=== PATIENT | female | born 1990 | race Caucasian/White ===

== ENCOUNTER 2021-09-17 09:56 | Emergency (ER) | payer MEDICARE, MEDICAID, SELFPAY ==
--- NOTE | ~2021-09-17 | US_ITS ---
EXAMINATION: US ABDOMEN LIMITED CLINICAL INFORMATION: Right upper quadrant pain. Hepatitis a COMPARISON: September 22, 2011 and August 02, 2011 TECHNIQUE: Real-time imaging of the right upper quadrant abdominal viscera. FINDINGS: PANCREAS: Normal. LIVER: Hepatomegaly is present with vertical span of 20 cm. There is diffusely increased echogenicity consistent with fatty infiltration or hepatocellular disease. The liver contour is normal. No focal hepatic lesion. There is no intrahepatic biliary duct dilatation seen. GALLBLADDER: Status post cholecystectomy. COMMON BILE DUCT: Normal in caliber measuring 0.5 cm in diameter. RIGHT KIDNEY: Normal. No hydronephrosis. No renal calculi or focal parenchymal lesions. The kidney measures 12.5 cm in maximum dimension. FREE FLUID: None. US/US abdomen limited IMPRESSION: Hepatomegaly with increased echogenicity consistent with fatty infiltration or hepatocellular disease of other etiology.
--- NOTE | ~2021-09-17 | XR_ITS ---
EXAMINATION: XR CHEST CLINICAL INFORMATION: Fever. COMPARISON: Chest radiographs 05/24/2012 TECHNIQUE: PA and lateral views of the chest are obtained. FINDINGS: There is airspace consolidation and atelectasis involving the left posterior basal lower lobe. The remainder the lungs are clear. No visible effusion. Heart is within limits of normal size. There is no hyperinflation. The vascularity is normal. Bony structures are unremarkable. XR/XR chest 2V IMPRESSION: Airspace opacity and subsegmental atelectasis basal left lower lobe suggesting pneumonia. No effusion.
[2021-09-17 11:14] VITALS: BP 134/74; PULSE 82; RESP 20; TEMP 36.5; O2SAT 94; BMI 52.7
[2021-09-17 11:19] VITALS: BP 170/92; PULSE 95; RESP 22; TEMP 36.2; O2SAT 96
--- NOTE | 2021-09-17 11:28 | ED_ITS ---
HPI - Abdominal Pain General Chief Complaint: Abdominal Pain Stated Complaint: HEP A, fever, abd pain, diarrhea Time Seen by Provider: 09/17/21 11:06 Source: patient Mode of arrival: ambulatory Limitations: no limitations History of Present Illness HPI narrative: 31-year-old female with a history of obesity, asthma, and recently diagnosed hepatitis a who presents to the ER with 3 weeks of ongoing abdominal pain, nausea, diarrhea, and nightly fevers. She was seen at [facility] on August 29, had a CT scan of her abdomen, blood work and was diagnosed with hepatitis A. They told her it most likely was from a bacteria that she got at work, she works at a convenience store. She then saw her primary care doctor on September 09, additional blood work and liver ultrasound was ordered which was not completed yet. She reports this last week she has had significant decreased p.o. intake, nausea, 4-5 episodes of nonbloody diarrhea per day, and nightly fevers as high as 104 degrees. She reports when her fever was 104 her eyes rolled back and her mom had to slap her to wake her up. She has been taking Motrin for abdominal pain and fevers with intermittent slight improvement. She has no cough or shortness of breath. She has no urinary symptoms but reports her urine is dark in color. MD elicited complaint: abdominal pain Pertinent past history: other (Recently diagnosed hepatitis A) Onset (ago): week(s) Pain Consistency: intermittent Location: epigastric, RUQ and L flank Severity: severe Pain scale (0-10): 10 Quality: burning Radiation: none Migration to: RUQ and L flank Exacerbating factors: eating and other (night) Relieving factors: nothing Associated symptoms: nausea, diarrhea, fever and chills Related Data Previous Rx's Medication Instructions Recorded levofloxacin 500 mg tablet 500 mg PO DAILY #7 tab 09/17/21 omeprazole 40 mg capsule,delayed 40 mg PO DAILY #14 cap 09/17/21 release ondansetron HCl 4 mg tablet 4 mg PO Q8H PRN #10 tab 09/17/21 (Zofran) Allergies Allergy/AdvReac Type Severity Reaction Status Date / Time penicillin V Allergy Unknown rash Unverified 01/28/15 00:00 Penicillins [PENICILLINS] Allergy Unknown HIVES Unverified 08/13/20 16:03 Review of Systems Review of Systems Constitutional: + Fever, No Chills ENT/Mouth: No sore throat, No Rhinorrhea, No Swallowing Difficulty Eyes: No Eye Pain, No Swelling, No Redness, No sceral icterus Cardiovascular: No Chest Pain, No SOB, No Orthopnea, No Edema Respiratory: No Cough, No Sputum, No Wheezing, No dyspnea Gastrointestinal: + Nausea, No Vomiting, + Diarrhea, + abdominal Pain Genitourinary: No Dysuria, No Urinary Frequency, No Hematuria Musculoskeletal: No joint pain, No Myalgias Skin: No Skin Lesions, No rash Neuro: + Weakness, No Numbness, + Dizziness, No Headache Psych: + Anxiety/Panic, + Depression Heme/Lymph: No Bruising, No Lymphadenopathy Endocrine: No Polyuria, No Polydipsia Physical Exam Vital Signs: Vital Signs: Last Vital Signs Temp 98.4 F 09/17/21 14:00 Pulse 86 09/17/21 14:00 Resp 16 09/17/21 15:36 BP 118/60 09/17/21 15:36 Pulse Ox 96 09/17/21 14:00 Body Mass Index 52.7 Appearance: Alert. Oriented X3. Tearful Eyes: Pupils equal, round and reactive to light. Sclera non-icteric ENT: Pharynx normal. Neck: Normal inspection. Neck supple. CVS: Normal heart rate and rhythm. Pulses normal. Respiratory: No respiratory distress. Breath sounds normal. Abdomen: Obese, Soft with moderate epigastic tenderness without rebound or guarding. decreased +BS x4 Skin: Skin warm and dry. Normal skin color. Normal skin turgor. No rashes. Extremities: No lower extremity edema. Neuro: Oriented X 3. No motor deficit. No sensory deficit. Course Course Course Narrative: 31-year-old female with recently diagnosed hepatitis A presenting with ongoing symptoms of nightly fevers, abdominal pain, nonbloody diarrhea, decreased p.o. intake and generalized fatigue and weakness. She is tearful on arrival and very anxious. She is frustrated being in and out of hospitals and doctors office with no improvement in the way she is feeling. Her vital signs are stable on arrival when she is afebrile. She is nontoxic linda earing she has no jaundice. Will plan to repeat her blood work, proceed with abdominal ultrasound, and get records from [facility]. She had a CT scan done there less than a month ago. Her abdominal exam is mostly benign with only some mild epigastric tenderness. Will treat with a GI cocktail as she has been taking Motrin consistently and there is concern for gastritis. Dispo pending results and improvement. Reevaluation(s) Reevaluation #1: Abdominal pain is significantly improved after GI cocktail. Abdominal ultrasound showing fatty liver. Her LFTs are mildly elevated with normal bilirubin and alk-phos. Her hepatitis panel is showing positive hepatitis C antibody, hepatitis-A is negative. She denies any history of IV drug use or blood transfusion in her lifetime. She is not sexually active at this time. She was counseled on need for follow-up with GI doctor and she agrees. Chest x-ray showing a left lower lobe pneumonia. Will treat with p.o. antibiotics. She is stable from respiratory perspective with no respiratory distress or hypoxia. She is requesting additional IV fluids. She is concerned about going home given the way she is feeling right now. Will give a p.o. trial and reassess Reevaluation #2: Patient is feeling much better. She tolerated p.o. well. Stable for discharge home on p.o. antibiotics, antacids, p.r.n. Zofran and plan for follow-up with GI as an outpatient. Patient agreeable with plan. Work note provided per request. MDM - Abdominal Pain Lab Data Result diagrams: 09/17/21 11:47 09/17/21 11:47 Labs: Lab Results 09/17/21 09/17/21 09/17/21 Range/Units 11:47 11:47 11:47 WBC 10.5 (4.8-10.8) X10*3/uL RBC 4.84 (4.20-5.50) X10*6/uL Hgb 13.6 (12.0-16.0) g/dl Hct 41.8 (37-47) % MCV 86.4 (80-98) fL MCH 28.1 (27.0-33.0) pg MCHC 32.5 (31.0-35.0) g/dl RDW 13.6 (11.0-16.0) % Plt Count 339 (160-400) X10*3/uL MPV 9.0 L (9.4-12.3) fL Immature Gran % (Auto) Cancelled Neut % (Auto) Cancelled Lymph % (Auto) Cancelled Christian % (Auto) Cancelled Eos % (Auto) Cancelled Baso % (Auto) Cancelled Lymph # (Auto) Cancelled Christian # (Auto) Cancelled Eos # (Auto) Cancelled Baso # (Auto) Cancelled Abs Immat Gran (auto) Cancelled Absolute Neuts (auto) Cancelled Absolute Nucleated RBC 0.000 (0.0-0.012) X10*3/uL Nucleated RBC % (auto) 0.0 (0.0-0.2) /100WBC Neutrophils % (Manual) 49 (45-73) % Band Neutrophils % 3 (3-5) % Lymphocytes % (Manual) 36 (20-40) % Atypical Lymphs % (Man) 2 (0-6) % Monocytes % (Manual) 10 (2-11) % Abs Neuts (Manual) 5.5 (2.2-7.9) X10*3/uL Lymphocytes # (Manual) 3.8 (0.6-4.8) X10*3/uL Atyp Lymphs # (Manual) 0.2 x10*3/uL Monocytes # (Manual) 1.1 (0.0-1.2) X10*3/uL Platelet Estimate NORMAL (NORMAL) Plt Morphology Comment NORMAL RBC Morphology NORMAL PT 11.8 (9.9-13.0) SEC INR 1.0 (0.9-1.1) APTT 35.3 (24.1-38.0) SEC Sodium 138 (135-145) mmol/L Potassium 4.6 (3.3-5.1) mmol/L Chloride 103 (96-108) mmol/L Carbon Dioxide 29 (22-29) mmol/L Anion Gap 11 L (12-20) BUN 8 L (9-16) mg/dL Creatinine 0.71 (0.5-1.4) mg/dL Estim Creat Clear Calc 179.3 Estimated GFR > 60 Random Glucose 88 (60-115) mg/dL Lactic Acid (0.5-2.0) mmol/L Calcium 8.7 (8.4-10.2) mg/dL Magnesium 2.2 (1.6-2.6) mg/dL Total Bilirubin 0.7 (0.0-1.0) mg/dL Direct Bilirubin 0.3 (0.0-0.5) mg/dL AST 32 H (5-31) U/L ALT 36 H (0-31) U/L Alkaline Phosphatase 113 (39-117) U/L Total Protein 7.3 (6.5-8.0) g/dL Albumin 3.3 L (3.5-5.0) g/dL Lipase 33 (8-78) U/L Urine Color Urine Appearance Urine pH (5.0-8.0) Ur Specific Elsie (1.005-1.025) Urine Protein (NEG-TRACE) MG/DL Urine Glucose (UA) (NEG) MG/DL Urine Ketones (NEG) MG/DL Urine Blood (NEG) Urine Nitrite (NEG) Ur Leukocyte Esterase (NEG) Ethyl Alcohol mg/dL COVID-19 (LAQUITA) (Negative) COVID-19 Clin Com Hepatitis A IgM Ab (Nonreactive) Hep Bs Antigen (Negative) Hep Bs Antibody (Nonreactive) Hep B Core Total Ab (Nonreactive) Hepatitis C Ab (EIA) (Nonreactive) 09/17/21 09/17/21 09/17/21 Range/Units 11:47 11:47 11:48 WBC (4.8-10.8) X10*3/uL RBC (4.20-5.50) X10*6/uL Hgb (12.0-16.0) g/dl Hct (37-47) % MCV (80-98) fL MCH (27.0-33.0) pg MCHC (31.0-35.0) g/dl RDW (11.0-16.0) % Plt Count (160-400) X10*3/uL MPV (9.4-12.3) fL Immature Gran % (Auto) Neut % (Auto) Lymph % (Auto) Christian % (Auto) Eos % (Auto) Baso % (Auto) Lymph # (Auto) Christian # (Auto) Eos # (Auto) Baso # (Auto) Abs Immat Gran (auto) Absolute Neuts (auto) Absolute Nucleated RBC (0.0-0.012) X10*3/uL Nucleated RBC % (auto) (0.0-0.2) /100WBC Neutrophils % (Manual) (45-73) % Band Neutrophils % (3-5) % Lymphocytes % (Manual) (20-40) % Atypical Lymphs % (Man) (0-6) % Monocytes % (Manual) (2-11) % Abs Neuts (Manual) (2.2-7.9) X10*3/uL Lymphocytes # (Manual) (0.6-4.8) X10*3/uL Atyp Lymphs # (Manual) x10*3/uL Monocytes # (Manual) (0.0-1.2) X10*3/uL Platelet Estimate (NORMAL) Plt Morphology Comment RBC Morphology PT (9.9-13.0) SEC INR (0.9-1.1) APTT (24.1-38.0) SEC Sodium (135-145) mmol/L Potassium (3.3-5.1) mmol/L Chloride (96-108) mmol/L Carbon Dioxide (22-29) mmol/L Anion Gap (12-20) BUN (9-16) mg/dL Creatinine (0.5-1.4) mg/dL Estim Creat Clear Calc Estimated GFR Random Glucose (60-115) mg/dL Lactic Acid 1.4 (0.5-2.0) mmol/L Calcium (8.4-10.2) mg/dL Magnesium (1.6-2.6) mg/dL Total Bilirubin (0.0-1.0) mg/dL Direct Bilirubin (0.0-0.5) mg/dL AST (5-31) U/L ALT (0-31) U/L Alkaline Phosphatase (39-117) U/L Total Protein (6.5-8.0) g/dL Albumin (3.5-5.0) g/dL Lipase (8-78) U/L Urine Color Urine Appearance Urine pH (5.0-8.0) Ur Specific Elsie (1.005-1.025) Urine Protein (NEG-TRACE) MG/DL Urine Glucose (UA) (NEG) MG/DL Urine Ketones (NEG) MG/DL Urine Blood (NEG) Urine Nitrite (NEG) Ur Leukocyte Esterase (NEG) Ethyl Alcohol < 10 mg/dL COVID-19 ([facility]QUITA) (Negative) COVID-19 Clin Com Hepatitis A IgM Ab Nonreactive (Nonreactive) Hep Bs Antigen Negative (Negative) Hep Bs Antibody REACTIVE (Nonreactive) Hep B Core Total Ab Nonreactive (Nonreactive) Hepatitis C Ab (EIA) Reactive H (Nonreactive) 09/17/21 09/17/21 Range/Units 11:48 13:46 WBC (4.8-10.8) X10*3/uL RBC (4.20-5.50) X10*6/uL Hgb (12.0-16.0) g/dl Hct (37-47) % MCV (80-98) fL MCH (27.0-33.0) pg MCHC (31.0-35.0) g/dl RDW (11.0-16.0) % Plt Count (160-400) X10*3/uL MPV (9.4-12.3) fL Immature Gran % (Auto) Neut % (Auto) Lymph % (Auto) Christian % (Auto) Eos % (Auto) Baso % (Auto) Lymph # (Auto) Christian # (Auto) Eos # (Auto) Baso # (Auto) Abs Immat Gran (auto) Absolute Neuts (auto) Absolute Nucleated RBC (0.0-0.012) X10*3/uL Nucleated RBC % (auto) (0.0-0.2) /100WBC Neutrophils % (Manual) (45-73) % Band Neutrophils % (3-5) % Lymphocytes % (Manual) (20-40) % Atypical Lymphs % (Man) (0-6) % Monocytes % (Manual) (2-11) % Abs Neuts (Manual) (2.2-7.9) X10*3/uL Lymphocytes # (Manual) (0.6-4.8) X10*3/uL Atyp Lymphs # (Manual) x10*3/uL Monocytes # (Manual) (0.0-1.2) X10*3/uL Platelet Estimate (NORMAL) Plt Morphology Comment RBC Morphology PT (9.9-13.0) SEC INR (0.9-1.1) APTT (24.1-38.0) SEC Sodium (135-145) mmol/L Potassium (3.3-5.1) mmol/L Chloride (96-108) mmol/L Carbon Dioxide (22-29) mmol/L Anion Gap (12-20) BUN (9-16) mg/dL Creatinine (0.5-1.4) mg/dL Estim Creat Clear Calc Estimated GFR Random Glucose (60-115) mg/dL Lactic Acid (0.5-2.0) mmol/L Calcium (8.4-10.2) mg/dL Magnesium (1.6-2.6) mg/dL Total Bilirubin (0.0-1.0) mg/dL Direct Bilirubin (0.0-0.5) mg/dL AST (5-31) U/L ALT (0-31) U/L Alkaline Phosphatase (39-117) U/L Total Protein (6.5-8.0) g/dL Albumin (3.5-5.0) g/dL Lipase (8-78) U/L Urine Color YELLOW Urine Appearance HAZY Urine pH 6.0 (5.0-8.0) Ur Specific Elsie 1.020 (1.005-1.025) Urine Protein NEG (NEG-TRACE) MG/DL Urine Glucose (UA) NEG (NEG) MG/DL Urine Ketones NEG (NEG) MG/DL Urine Blood NEG (NEG) Urine Nitrite NEG (NEG) Ur Leukocyte Esterase NEG (NEG) Ethyl Alcohol mg/dL COVID-19 ([facility]QUITA) Negative (Negative) COVID-19 Clin Com See Note Hepatitis A IgM Ab (Nonreactive) Hep Bs Antigen (Negative) Hep Bs Antibody (Nonreactive) Hep B Core Total Ab (Nonreactive) Hepatitis C Ab (EIA) (Nonreactive) Discharge Plan Discharge Clinical Impression: CAP (community acquired pneumonia), Hepatitis C antibody positive in blood, Gastritis Patient Disposition: Home, Self-Care Instructions: Hepatitis C (ED), Community Acquired Pneumonia (ED), Gastritis (ED) Additional Instructions: Your lab workup today was unremarkable. Your hepatitis panel did show positive hepatitis C antibodies. Recommend following up with GI. Your chest x-ray showed pneumonia - take the prescribed antibiotic as directed. Stick to a bland diet where not feeling well. Stop taking the ibuprofen for now, this could be causing irritation of your stomach lining. Take the prescribed anti acid as directed for 2 weeks. Rest and drink plenty of fluids. Follow-up with your doctor. If you develop new or worsening symptoms call 911 or come back to the ER for further evaluation. Prescriptions: New levofloxacin 500 mg tablet 500 mg PO DAILY Qty: 7 RF: 0 ondansetron HCl [Zofran] 4 mg tablet 4 mg PO Q8H PRN (Reason: nausea and vomiting) Qty: 10 RF: 0 omeprazole 40 mg capsule,delayed release(DR/EC) 40 mg PO DAILY Qty: 14 RF: 0 Referrals: Bjorn Tony MD [Physician] - 1 week Stand Alone Forms: Work/School Release Print Language: Citizen Of [place] [facility] Social History Social History Alcohol intake: never Patient Tobacco Use Status: Never used Tobacco Use of substances other than those prescribed or required for medical reasons: No Advance Directives: No Patient : No
[2021-09-17] MEDS: Magnesium Hydrox/Alum Hydrox 30 ML ORAL.SUSP PO (11:58)
[2021-09-17] MEDS: 0.9 % Sodium Chloride 1,000 ML 999 ML IVCONT ×2 (11:58→14:28)
[2021-09-17] MEDS: PHENobarb/Hyoscy/Atropine/Scop 10 ML ELIXIR PO (11:58)
[2021-09-17] MEDS: Lidocaine HCl Viscous 2 % 15 ML SOLUTION MUCOUS MEM (11:58)
[2021-09-17 12:00] LABS: Hematocrit 41.8 % (37-47); Hemoglobin 13.6 g/dl (12.0-16.0); Mean Corpuscular HGB Conc 32.5 g/dl (31.0-35.0); Mean Corpuscular Hemoglobin 28.1 pg (27.0-33.0); Mean Corpuscular Volume 86.4 fL (80-98); Platelet Count 339 X10*3/uL (160-400); Red Blood Count 4.84 X10*6/uL (4.20-5.50); Red Cell Distribution Width 13.6 % (11.0-16.0); White Blood Count 10.5 X10*3/uL (4.8-10.8)
[2021-09-17 12:06] LABS: Prothrombin Time 11.8 SEC (9.9-13.0)
[2021-09-17 12:08] LABS: Partial Thromboplastin Time 35.3 SEC (24.1-38.0)
[2021-09-17 12:11] LABS: Ethanol < 10 mg/dL
[2021-09-17 12:12] LABS: COVID-19 Test Negative (Negative); IDNOW Serial# 9DD0AD1C; Lactic Acid 1.4 mmol/L (0.5-2.0)
[2021-09-17 12:16] LABS: Alanine Aminotransferase 36 U/L (0-31); Albumin Level 3.3 g/dL (3.5-5.0); Alkaline Phosphatase 113 U/L (39-117); Anion Gap 11 (12-20); Aspartate Amino Transferase 32 U/L (5-31); Bilirubin Direct 0.3 mg/dL (0.0-0.5); Bilirubin Total 0.7 mg/dL (0.0-1.0); Blood Urea Nitrogen 8 mg/dL (9-16); Calcium 8.7 mg/dL (8.4-10.2); Carbon Dioxide 29 mmol/L (22-29); Chloride 103 mmol/L (96-108); Creatinine Clr Calc Pharmacy 179.3; Estimated Glomerular Filt Rate > 60; Glucose Random 88 mg/dL (60-115); Lipase 33 U/L (8-78); Magnesium 2.2 mg/dL (1.6-2.6); Potassium 4.6 mmol/L (3.3-5.1); Sodium 138 mmol/L (135-145); Total Protein 7.3 g/dL (6.5-8.0)
[2021-09-17 12:41] LABS: ~HepC Num1 1.88 S/CO (0.00-0.79); ~Hepatitis C Antibody Reactive (Nonreactive)
[2021-09-17 12:51] LABS: HBS Num1 74.67 mIU/mL (0-7.99); HBc Num1 0.18 S/CO (0.00-0.79); HBsAGNum1 0.17 S/CO (0.00-0.99); Hepatitis B Core Antibody Nonreactive (Nonreactive); Hepatitis B Surface Antigen Negative (Negative); ~Hepatitis A Antibody IgM Nonreactive (Nonreactive); ~Hepatitis B Surface Antibody REACTIVE (Nonreactive)
[2021-09-17 12:52] LABS: Atypical Lymph Absolute Manual 0.2 x10*3/uL; Atypical Lymphs Percent Manual 2 % (0-6); Band Neutrophils Percent 3 % (3-5); Lymphocytes Absolute Manual 3.8 X10*3/uL (0.6-4.8); Lymphocytes Percent Manual 36 % (20-40); Monocytes Absolute Manual 1.1 X10*3/uL (0.0-1.2); Monocytes Percent Manual 10 % (2-11); Neutrophils Absolute Manual 5.5 X10*3/uL (2.2-7.9); Neutrophils Percent Manual 49 % (45-73)
[2021-09-17 12:53] LABS: Platelet Estimate NORMAL (NORMAL); Platelet Morphology Comment NORMAL; RBC Morphology NORMAL
[2021-09-17 13:44] VITALS: BP 121/61; PULSE 86; RESP 15; TEMP 36.7; O2SAT 96
[2021-09-17 13:55] LABS: Appearance Urine HAZY; Color Urine YELLOW; Glucose Urine UA NEG (NEG); Leukocyte Esterase Urine NEG (NEG); Nitrite Urine NEG (NEG); Urine Blood NEG (NEG); Urine Ketones NEG (NEG); Urine Protein NEG (NEG-TRACE)
[2021-09-17 14:00] VITALS: BP 118/60; PULSE 86; RESP 14; TEMP 36.9; O2SAT 96
[2021-09-17 15:36] VITALS: BP 118/60; RESP 16
== END 2021-09-17 17:19 | disposition home or self-care (01) ==
PROVIDERS: Physician Assistant; Emergency Provider Emergency Medicine
DX: J18.9 Pneumonia, unspecified organism (principal); K29.00 Acute gastritis without bleeding; R50.9 Fever, unspecified; R19.7 Diarrhea, unspecified; Z20.822 Contact with and (suspected) exposure to COVID-19; Z79.899 Other long term (current) drug therapy
CPT/HCPCS: 36415; 71046; 76705; 80048; 80076; 81003; 82077; 83605; 83690; 83735; 85007; 85025; 85027; 85610; 85730; 86704; 86706; 86709; 86803; 87040; 87340; 87635; 96360; 96361; 99285

== ENCOUNTER 2022-06-25 13:09 | Emergency (ER) | payer MEDICARE, MEDICAID, SELFPAY ==
[2022-06-25 13:24] VITALS: PULSE 79; RESP 16; TEMP 36.7; O2SAT 94; BMI 48.6
--- NOTE | 2022-06-25 14:05 | ED.GENADULT ---
HPI - General Adult General Chief complaint: General Medical Stated complaint: bee sting/diabetic Time Seen by Provider: 06/25/22 14:05 Source: patient Mode of arrival: ambulatory Limitations: no limitations History of Present Illness HPI narrative: Patient is a 32 year old female presenting to the emergency department today with a bee sting to her left 2nd toe. Patient states that she was stung by a bee at approximately 1pm and she is allergic to bee stings. Patient states that she is also a diabetic. Patient denies any dizziness, lightheadedness, abdominal pain, nausea, vomiting, fever, chills, blurry vision, double vision, loss of vision, chest pain, difficulty breathing, shortness of breath, back pain, night sweats, pain with urination, increased urinary frequency, increased urinary urgency, blood in her urine or stool, syncope or a near syncopal episode, recent trauma or falls, bowel incontinence, bladder incontinence, bowel retention, bladder retention, or any other complaints at this time. Onset (ago): hour(s) Location: left and lower extremity (2nd toe) Radiation: non-radiation Severity: mild Severity scale (1-10): 1 Quality: dull Pain Consistency: constant Relieving factors: none Exacerbating factors: none Associated symptoms: denies other symptoms Treatments prior to arrival: none Related Data Previous Rx's Medication Instructions Recorded levofloxacin 500 mg tablet 500 mg PO DAILY #7 tabs 09/17/21 omeprazole 40 mg capsule,delayed 40 mg PO DAILY #14 caps 09/17/21 release ondansetron HCl 4 mg tablet 4 mg PO Q8H PRN nausea and 09/17/21 (Zofran) vomiting #10 tabs epinephrine 0.3 mg/0.3 mL 0.3 mg (0.3 mL) IM Q4H PRN 06/25/22 injection, auto-injector (EpiPen anaphylaxis #2 ea 2-Ronak) Allergies Allergy/AdvReac Type Severity Reaction Status Date / Time bee pollen [bee stings] Allergy Intermediate Swelling Verified 06/25/22 13:27 penicillin V Allergy Intermediate rash Verified 06/25/22 13:27 Penicillins [PENICILLINS] Allergy Intermediate HIVES Verified 06/25/22 13:27 Review of Systems Constitutional: Constitutional: Reports no additional constitutional complaints, Denies chills, Denies fever(s) and Denies night sweats Eyes: Eyes: Reports no additional eye complaints, Denies blurry vision, Denies change in vision, Denies diplopia, Denies eye discharge, Denies loss of vision and Denies eye pain ENT: Denies dizziness Cardiovascular: Cardiovascular: Reports no additional cardiovascular complaints, Denies chest pain, Denies lightheadedness, Denies Loss of Consciousness and Denies dyspnea Respiratory: Respiratory: Reports no additional respiratory complaints and Denies dyspnea Gastrointestinal: Gastrointestinal: Reports no additional gastrointestinal complaints, Denies abdominal pain, Denies melena, Denies hematochezia, Denies change in bowel habits and Denies change in stool character Genitourinary: Genitourinary: Denies hematuria, Denies urinary frequency, Denies dysuria, Denies urinary incontinence, Denies urinary hesitancy and Denies urinary urgency Musculoskeletal: Musculoskeletal: Reports no additional musculoskeletal complaints, Denies numbness and Denies tingling Comments: left 2nd toe pain Neurologic: Denies dizziness, Denies loss of vision, Denies numbness and Denies tingling Psychiatric: Psychiatric: Reports no additional psychiatric complaints Endocrine: Endocrine: Reports no additional endocrine complaints Hematologic/Lymphatic: Hematologic/Lymphatic: Reports no additional hematologic/lymphatic complaints Allergic/Immunologic: Allergic/Immunologic: Reports no additional allergic/immunologic complaints [facility] Past Medical History Attestation statement: The following information was validated with the patient. Source: old records reviewed Social History Social History Alcohol intake: never Patient Tobacco Use Status: Never used Tobacco Advance Directives: No Physical Exam ED Vital Signs: Vital Signs - 24 hr 06/25/22 13:24 Temperature 98.0 F Pulse Rate 79 Respiratory Rate 16 Pulse Oximetry 94 Oxygen Delivery Method Room Air BMI result Body Mass Index 48.6 Const General: cooperative, no acute distress, alert and awake Nutritional Appearance: well nourished Orientation/consciousness: patient oriented x3 Limitations: no limitations HENMT Head: Yes normal to inspection and Yes atraumatic Ears: hearing grossly normal bilaterally and external ears normal General nose exam: Normal external nose present, no nasal discharge noted and no epistaxis Face and sinus: Yes normal facial exam, No abrasion and No laceration Mouth: Normal oral and palatal mucosa present, no drooling and no muffled voice Eyes General: appearance normal, both eyes and all related structures Periorbital: periorbital findings normal Eyelids: Yes eyelids normal Conjunctivae: conjunctivae normal Pupils: Equal, round and reactive pupils present EOM: EOMs intact bilaterally Neck Neck: Yes normal visual inspection, Yes full ROM and Yes no lymphadenopathy Chest Chest palpation & inspection: normal inspection of the chest Resp Effort & Inspection: normal respiratory effort and able to speak in complete sentences Auscultation: clear to auscultation bilaterally Cardio Rate: regular rate Rhythm: regular rhythm GI Inspection: Yes normal to inspection Neuro General: patient oriented x3 and moves all extremities Cranial nerves: Yes Equal, round and reactive pupils present Cognition (Neuro): normal cognition Motor exam (neuro): 5/5 motor strength present throughout Sensory Exam: Normal double simultaneous stimulation for sensation Coordination: [id number] test normal Extrem General: Yes normal to inspection, Yes full ROM and Yes capillary refill normal Psych Appearance: grossly normal Mental Status: mental status grossly normal Affect: normal affect Attitude: cooperative Thought process: Normal thought process present Thought content: Normal thought content present Insight: Good insight present (Psych) Medical Decision Making [facility] Narrative Medical decision making narrative: Patient is a 32 year old female presenting to the emergency department today with a possible bee sting to the left 2nd toe. Patient's physical exam was unremarkable. I did not appreciate any puncture wound, redness, or warmth to the left foot or left toes. Patient was in no respiratory distress. No stridor or voice hoarseness appreciated. I explained my physical exam findings to the patient. I answered all questions asked by the patient. Patient requested a refill of her epi pens even though she does not have anaphylaxis to bee stings, she does have anaphylaxis to other things. I stressed the importance of the patient taking her medication as prescribed. I stressed the importance of the patient following up with her primary care provider. I stressed the importance of the patient returning to the emergency department immediately if her symptoms were to worsen or if she were to develop any dizziness, shortness of breath, difficulty breathing, chest pain, blurry vision, loss of vision, nausea, vomiting, abdominal pain, fever, chills, back pain, or any other complaints. Patient verbalized agreement and understanding with this treatment plan and discharge. Differential Diagnosis Differential Diagnosis: insect bite, allergic reaction Medical Records Medical records reviewed: Yes I reviewed the patient's medical records. Discharge Plan Discharge Clinical Impression: Allergic reaction Patient Disposition: Home, Self-Care Instructions: General Allergic Reaction (ED) Additional Instructions: Follow up with your primary care provider. Return to the emergency department immediately if your symptoms worsen or if you develop any dizziness, shortness of breath, difficulty breathing, chest pain, blurry vision, loss of vision, nausea, vomiting, abdominal pain, fever, chills, back pain, or any other complaints. Prescriptions: New epinephrine [EpiPen 2-Ronak] 0.3 mg/0.3 mL auto-injector 0.3 mg IM Q4H PRN (Reason: anaphylaxis) Qty: 2 0RF No Action levofloxacin 500 mg tablet 500 mg PO DAILY Qty: 7 0RF ondansetron HCl [Zofran] 4 mg tablet 4 mg PO Q8H PRN (Reason: nausea and vomiting) Qty: 10 0RF omeprazole 40 mg capsule,delayed release(DR/EC) 40 mg PO DAILY Qty: 14 0RF Referrals: [facility] [place] Family Medicine [Provider Group] (Call to establish and follow up with your primary care provider. If you already have a primary care provider, please follow up with them.) [facility] [place] [facility] [Provider Group] (Call to establish and follow up with your primary care provider. If you already have a primary care provider, please follow up with them.) [facility] [place] [facility] [Provider Group] (Call to establish and follow up with your primary care provider. If you already have a primary care provider, please follow up with them.) Interventions: ED Discharge Assessment Last Done: 06/25/22 14:24 Discharge Date/Time: 06/25/22 14:25 Print Language: Mongolian
== END 2022-06-25 14:25 | disposition home or self-care (01) ==
PROVIDERS: Emergency Provider Student in an Organized Health Care Education/Training Program
DX: T63.441A Toxic effect of venom of bees, accidental (unintentional), initial encounter (principal); Y92.9 Unspecified place or not applicable
CPT/HCPCS: 99282; 99283

== ENCOUNTER 2025-08-28 17:24 | Emergency (ER) | payer MEDICARE, MEDICAID, SELFPAY ==
[2025-08-28 17:26] VITALS: BP 166/77; PULSE 89; RESP 18; TEMP 37; O2SAT 97; BMI 50.0
--- OUTSIDE RECORDS SUMMARY | 2025-08-28 18:00 | XMS_ITS | Clinical Summary ---
Author Organization [facility] ity Address [address] [place] [address] Care Team Providers Care Exhibits Coordinator Name Role Phone Ameya Mata MD Primary Care Provider [phone] Surgical History Surgery Date Site/Laterality Comments TONSILLECTOMY ADENOIDECTOMY, BILATERAL MYRINGOTOMY AND TUBES PROCEDURE: [place] TONSILLECTOMY & ADENOIDECTOMY <AGE 13 CHOLECYSTECTOMY PROCEDURE: [place] LAPAROSCOPY SURG CHOLECYSTECTOMY Medical History Medical History Date Comments Anxiety state DX:Anxiety state Venereal disease DX:Venereal dis ease Asthma DX:Asthma Bacterial pneumonia DX:Bacterial pneumonia Family History Medical History Relation Name Comments Hypertension Father Prostate cancer Father Arthritis Mother Diabetes Mother Relation Name Status Comments Father Alive Mother Social History Tobacco Use Types Packs/Day Years Used Date Smoking Tobacco: Never Smokeless Tobacco: Never Alcohol Use Standard Drinks/Week Comments No 0 (1 standard drink = 0.6 oz pur e alcohol) Comments Unknown Sex and Gender Information Value Date Recorded Sex Assigned at Not on file Legal Sex Female 3:31 PM EST Gender Identity Not on file Sexual Orientation Not on file Obstetrics History Plan of Treatment Health Maintenance Due Date Last Done Comments DTaP,Tdap,and Td Vaccines (1 - Tdap) 2010 Hepatitis B Vaccines (1 of 3 - 19+ 3-dose series) 2010 Cervical Cancer Screening: P ap Smear 2012 HPV Vaccines (1 - 3-dose SCD M series) 2018 Depression Screening 11/27/2024 COVID-19 Vaccine (2023-2 5 season) 2025 Influenza Vaccine (#1) 2025 RSV Immunization Adult Patie nts (1 - 1-dose 75+ series) 2066 HIB Vaccines Aged Out No longer eligi ble based on patient's age to complete this topic Hepatitis A Vaccines Aged Out No long er eligible based on patient's age to complete this topic IPV Vaccines Aged Out No longer eligi ble based on patient's age to complete this topic MMR Vaccines Aged Out No longer eligi ble based on patient's age to complete this topic Meningococcal ACWY Vaccine Aged Out N o longer eligible based on patient's age to complete this topic Meningococcal B Vaccine Aged Out No l onger eligible based on patient's age to complete this topic Pneumococcal Vaccine: Pediat rics (0 to 5 Years) and At-Risk Patients (6 to 49 Years) Aged Out No longer eligible b ased on patient's age to complete this topic RSV Immunization Patients Un darcy 20 months Aged Out No longer eligible b ased on patient's age to complete this topic Varicella Vaccines Aged Out No longer eligible based on patient's age to complete this topic Care Teams Exhibits Coordinator Relationship Specialty Start Date End Date Ameya Mata MD [address] [place] [address] PCP - General Emergency Medicine 11/27/11
--- NOTE | 2025-08-28 18:07 | ED.GENADULT ---
HPI - General Adult General Chief complaint: Allergic Reaction Stated complaint: bee sting allergic reaction Time Seen by Provider: 08/28/25 17:43 Source: patient Mode of arrival: ambulatory Limitations: no limitations History of Present Illness ED Provider: Андрей Holguin [facility] narrative: [age] year female with history of allergy to bee stings presents to the ED for allergic reaction due to being stung in right middle finger today. Patient is now has rash on upper extremities and chest. Patient denies any swelling of lips, tongue, drooling, change in voice, chest pain, shortness of breath Related Data Previous Rx's ?Medication ?Instructions ?Recorded levofloxacin 500 mg tablet 500 mg PO DAILY #7 tabs 09/17/21 omeprazole 40 mg capsule,delayed 40 mg PO DAILY #14 caps 09/17/21 release ondansetron HCl 4 mg tablet 4 mg PO Q8H PRN nausea and 09/17/21 (Zofran) vomiting #10 tabs epinephrine 0.3 mg/0.3 mL 0.3 mg (0.3 mL) IM Q4H PRN 06/25/22 injection, auto-injector (EpiPen anaphylaxis #2 ea 2-Ronak) diphenhydramine HCl 25 mg capsule 25 mg PO TID PRN allergic reaction 08/28/25 (Benadryl) #21 caps famotidine 20 mg tablet (Pepcid) 20 mg PO BID 5 days #10 tabs 08/28/25 prednisone 20 mg tablet 40 mg (2 x 20 mg) PO DAILY 5 days 08/28/25 #10 tabs Allergies Allergy/AdvReac Type Severity Reaction Status Date / Time bee pollen (bee stings) Allergy Intermediate Swelling Verified 08/28/25 17:29 penicillin V Allergy Intermediate rash Verified 08/28/25 17:29 Penicillins (PENICILLINS) Allergy Intermediate HIVES Verified 08/28/25 17:29 morphine Allergy Angioedema Verified 08/28/25 17:29 Review of Systems Review of Systems: Right middle finger insect bite, allergic reaction extremities rash Yes all other systems are reviewed and are negative PMFSH Social History Social History Alcohol intake: never Patient Tobacco Use Status: Never used Tobacco Advance Directives: No Advance Directives Information Provided: No Physical Exam ED Vital Signs: Vital Signs - 24 hr 08/28/25 17:26 08/28/25 18:45 Temperature 98.6 F 98.6 F Pulse Rate 89 89 Respiratory Rate 18 18 Blood Pressure 166/77 H 166/77 H Pulse Oximetry 97 97 Oxygen Delivery Method Room Air Room Air BMI result Body Mass Index 50.0 Const Orientation/consciousness: patient oriented x3 [facility] Other: Negative for swelling of lips, tongue, or uvula. Head: Yes normal to inspection, Yes No palpable skull fracture present, Yes normocephalic and Yes atraumatic Throat: Yes posterior oropharynx normal, Yes tonsils normal and Yes uvula midline Eyes General: appearance normal, both eyes and all related structures Neck Neck: Yes normal visual inspection, Yes full ROM, Yes no lymphadenopathy, Yes no meningeal signs, Yes trachea midline, Yes supple, No anterior neck swelling and No tender Chest Other: uticaria rash Chest palpation & inspection: normal inspection of the chest and normal palpation of entire chest wall Resp Effort & Inspection: normal respiratory effort and able to speak in complete sentences Auscultation: clear to auscultation bilaterally Cardio Jugular venous distension: no JVD Heart sounds: S1 normal heart sound present and S2 normal heart sound present GI Inspection: Yes normal to inspection Palpation (GI): Soft to palpation, not firm, nontender, no guarding and not rigid General: Yes no CVA tenderness Back/Spine/Pelvis Back: no CVA tenderness and No back tenderness Skin General skin exam: no rashes or lesions noted, elasticity normal and turgor normal Neuro General: patient oriented x3, gait normal, tone normal, moves all extremities, Normal light touch and pain sensation, no meningeal signs, no focal motor deficits, CN's II-XI intact bilaterally and normal sensation to monofilament Extrem Other: Positive for bilateral upper extremity uticaria General: Yes normal to inspection, Yes full ROM and Yes capillary refill normal Psych Appearance: grossly normal, well kempt and not disheveled Medications Administered Discontinued Medications Generic Name Dose Route Start Last Admin Trade Name Freq PRN Reason Stop Dose Admin Diphenhydramine HCl 50 mg 08/28/25 17:30 08/28/25 17:35 Diphenhydramine Hcl 25 Mg Capsule PO 08/28/25 17:31 50 mg ONCE ONE Administration Famotidine 20 mg 08/28/25 17:30 08/28/25 17:35 Famotidine 20 Mg Tablet PO 08/28/25 17:31 20 mg ONCE ONE Administration Prednisone 60 mg 08/28/25 17:30 08/28/25 17:35 Prednisone 20 Mg Tablet PO 08/28/25 17:31 60 mg ONCE ONE Administration Medical Decision Making Medical Decision Making [facility] Narrative: [age] year female presents to ED for for pacing to right middle finger which bleed to allergic reaction shows that is itchy rash on extremities and chest. Patient denies swelling of lips, tongue, chest pain, shortness of breath weakness fever or chills. Presently no signs of anaphylaxis. Vital signs stable. Benadryl Pepcid prednisone ordered. Not suspecting anaphylaxis, Refugio Jordon syndrome, cellulitis, or any other life-threatening etiology Differential Diagnosis Differential Diagnoses: The differential diagnosis associated with the presentation includes (Allergic reaction, anaphylaxis,) Admission/Observation Consideration of admission/observation: Escalation of care including admission/observation considered Independent Historian Clinical information obtained from an independent historian. History obtained from or confirmed by: Other (Patient) Prescription Management I considered prescription management with: Other (Benadryl prednisone Pepcid) Discharge Plan Discharge Clinical Impression: Allergic reaction Patient Disposition: Home, Self-Care Instructions: General Allergic Reaction (ED) Additional Instructions: Recommend follow up with the primary care provider. Return to the ED for any swelling of the lips, tongue, chest pain, shortness of breath, worsening rash, fever, chills, or any other concerning symptoms. Use your EpiPen if you have sensation of throat closing, lip swelling or severe shortness of breath. Inject into thigh Prescriptions: New diphenhydramine HCl [Benadryl] 25 mg capsule 25 mg PO TID PRN (Reason: allergic reaction) Qty: 21 0RF prednisone 20 mg tablet 40 mg PO DAILY 5 Days Qty: 10 0RF famotidine [Pepcid] 20 mg tablet 20 mg PO BID 5 Days Qty: 10 0RF No Action levofloxacin 500 mg tablet 500 mg PO DAILY Qty: 7 0RF ondansetron HCl [Zofran] 4 mg tablet 4 mg PO Q8H PRN (Reason: nausea and vomiting) Qty: 10 0RF omeprazole 40 mg capsule,delayed release(DR/EC) 40 mg PO DAILY Qty: 14 0RF epinephrine [EpiPen 2-Ronak] 0.3 mg/0.3 mL auto-injector 0.3 mg IM Q4H PRN (Reason: anaphylaxis) Qty: 2 0RF Stand Alone Forms: Work/School Release Interventions: ED Discharge Assessment Last Done: 08/28/25 18:45 Discharge Date/Time: 08/28/25 18:45 Print Language: Serbian
[2025-08-28 18:45] VITALS: BP 166/77; PULSE 89; RESP 18; TEMP 37; O2SAT 97
== END 2025-08-28 18:45 | disposition home or self-care (01) ==
PROVIDERS: Emergency Provider Emergency Medicine
DX: L23.89 Allergic contact dermatitis due to other agents (principal); T63.441A Toxic effect of venom of bees, accidental (unintentional), initial encounter; Y92.9 Unspecified place or not applicable
CPT/HCPCS: 99282; 99283